=== PATIENT | female | born 2000 | race African-American/Black ===

== ENCOUNTER 2023-04-09 14:35 | Observation (INO) | payer MEDICAID, OTHER ==
[~2023-04-09] VITALS: Ht 177.8 cm; Wt 133.4 kg
== END 2023-04-09 17:08 | disposition home or self-care (01) ==
LOC: 8 EST LDRP 14:35
PROVIDERS: ADMIT Obstetrics & Gynecology; ATTEND Obstetrics & Gynecology
DX: O26.893 Other specified pregnancy related conditions, third trimester (principal); R10.2 Pelvic and perineal pain; O12.02 Gestational edema, second trimester; O62.9 Abnormality of forces of labor, unspecified; Z3A.32 32 weeks gestation of pregnancy
CPT/HCPCS: 59025; 76818; 76805; G0378 ×2; 99281